=== PATIENT | male | born 1985 | race African-American/Black ===

== ENCOUNTER 2019-12-01 09:52 | Emergency (ER) | payer MEDICAID, OTHER ==
[~2019-12-01] VITALS: Ht 167.6 cm; Wt 79.4 kg
[2019-12-01 10:15] VITALS: BP 130/86
== END 2019-12-01 11:28 | disposition home or self-care (01) ==
LOC: ER 09:52
DX: H10.31 Unspecified acute conjunctivitis, right eye (principal)